=== PATIENT | male | born 1965 | race Two or more races ===

== ENCOUNTER 2019-02-23 09:57 | Emergency (ER) | payer SELFPAY ==
[~2019-02-23] VITALS: Ht 175.3 cm; Wt 95.3 kg
[2019-02-23 10:13] VITALS: BP 158/94
== END 2019-02-23 10:58 | disposition home or self-care (01) ==
LOC: ER 09:57
DX: J20.9 Acute bronchitis, unspecified (principal); I10 Essential (primary) hypertension
CPT/HCPCS: 71046

== ENCOUNTER 2022-06-12 07:00 | Emergency (ER) | payer SELFPAY ==
[~2022-06-12] VITALS: Ht 170.2 cm; Wt 90.0 kg
[2022-06-12] MEDS ORDERED: PROM1SOL4 PO (09:02)
[2022-06-12] MEDS ORDERED: AZIT500T66 PO (09:02)
[2022-06-12 09:21] VITALS: BP 129/88
== END 2022-06-12 09:20 | disposition home or self-care (01) ==
LOC: ER 07:00
DX: J03.90 Acute tonsillitis, unspecified (principal); J06.9 Acute upper respiratory infection, unspecified; I10 Essential (primary) hypertension; R07.89 Other chest pain
CPT/HCPCS: 71046